=== PATIENT | male | born 1985 | race Caucasian/White ===

== ENCOUNTER 2024-05-22 19:36 | Emergency (ER) | payer MEDICAID ==
[~2024-05-22] VITALS: Ht 170.2 cm; Wt 140.0 kg
[2024-05-22 19:41] VITALS: BP 162/120; TEMP 98.3
[2024-05-22 20:26] VITALS: PULSE 109; RESP 20; O2SAT 96
[2024-05-22] MEDS: IPRATROPIUM/ALBUTEROL 0.5-3(2.5)MG/3ML NEB HHN ONE (20:26)
[2024-05-22] MEDS: DEXAMETHASONE 10 MG/ML VIAL PO ONE (20:55)
[2024-05-22] MEDS ORDERED: P50 MT (21:31)
[2024-05-22] MEDS ORDERED: BENZ1LOZ73 MT (21:31)
[2024-05-22] MEDS ORDERED: ALBU18HF2 IH (21:31)
[2024-05-26] MEDS ORDERED: FLUO20CA33 MT (10:24)
[2024-05-26] MEDS ORDERED: AMIT10TA6 MT (10:24)
[2024-05-26] MEDS ORDERED: BENZ1TAB79 GT (10:24)
[2024-05-26] MEDS ORDERED: ZYDS20 PO ×2 (10:24)
[2024-05-26] MEDS ORDERED: OMEP20CA14 MT (10:24)
[2024-05-26] MEDS ORDERED: ALBU18HF2 IH ×2 (10:24→16:49)
[2024-05-26] MEDS ORDERED: depakote PO ×2 (10:24)
[2024-05-26] MEDS ORDERED: BENZ1LOZ73 MT ×2 (10:24)
[2024-05-26] MEDS ORDERED: GABA800T97 PO (10:24)
[2024-05-26] MEDS ORDERED: LISI10TA26 MT (10:24)
[2024-05-26] MEDS ORDERED: HALO5TAB2 MT (10:24)
[2024-05-26] MEDS ORDERED: TRAZ-252 MT (10:24)
[2024-05-26] MEDS ORDERED: MIRT-145 MT (10:24)
[2024-05-26] MEDS ORDERED: BENZ100C86 MT (16:49)
[2024-05-26] MEDS ORDERED: METH4TAB95 MT (16:49)
== END 2024-05-22 22:52 | disposition home or self-care (01) ==
LOC: ER 19:36
DX: J45.909 Unspecified asthma, uncomplicated (principal); B34.9 Viral infection, unspecified; Z88.5 Allergy status to narcotic agent; Z79.52 Long term (current) use of systemic steroids
CPT/HCPCS: 71045; 94640; 99283; J1100; Z7610 ×3